=== PATIENT | female | born 1990 | race Hispanic/Latino ===

== ENCOUNTER 2018-11-12 09:23 | Emergency (ER) | payer OTHER ==
[2018-11-12 09:33] VITALS: RESP 18; TEMP 97.9; O2SAT 100
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
[2018-11-12 14:30] VITALS: BP 122/70; PULSE 76
== END 2018-11-12 14:28 | disposition home or self-care (01) ==
LOC: H.ER 09:23
DX: S09.90XA Unspecified injury of head, initial encounter (principal); S00.83XA Contusion of other part of head, initial encounter; S16.1XXA Strain of muscle, fascia and tendon at neck level, initial encounter; Z86.73 Personal history of transient ischemic attack (TIA), and cerebral infarction without residual deficits; V73.6XXA Passenger on bus injured in collision with car, pick-up truck or van in traffic accident, initial encounter